=== PATIENT | male | born 1975 | race Caucasian/White ===

== ENCOUNTER 2019-09-15 09:25 | Emergency (ER) | payer OTHER ==
[~2019-09-15] VITALS: Ht 165.1 cm; Wt 94.1 kg
[2019-09-15 09:44] VITALS: Ht 165.1 cm; Wt 94.1 kg
[2019-09-15 12:21] VITALS: BP 122/83
== END 2019-09-15 12:21 | disposition home or self-care (01) ==
LOC: ED 09:25
DX: R51 Headache (principal); R19.7 Diarrhea, unspecified; E11.9 Type 2 diabetes mellitus without complications; I10 Essential (primary) hypertension
CPT/HCPCS: 82962; J1885